=== PATIENT | female | born 1985 | race Caucasian/White ===

== ENCOUNTER → 2021-06-21 11:58 | Outpatient (CLI) | payer OTHER, SELFPAY ==
--- NOTE | 2021-06-21 | DI.MRI.S_ITS ---
PROCEDURE: MR HIP LT WO CON INDICATIONS: Pain in left hip TECHNIQUE: Noncontrast coronal T1 spin echo and STIR through the bony pelvis. Coronal and axial T2 fast spin echo with fat saturation, sagittal T1 spin echo, and oblique axial T2 fast spin echo with fat saturation through the hip. COMPARISON: None. FINDINGS: Image quality: Excellent. Bones and joints: Bone marrow of the pelvic ring and proximal femurs show normal signal throughout. No intraosseous lesions or fractures. No avascular necrosis of the femoral heads. The visualized lower lumbar spine appears normally aligned. Tendons and ligaments: The gluteus medius and minimus tendons appear intact, without associated muscle atrophy. The nearby proximal iliotibial band also appears intact. The iliopsoas tendon appears intact, without adjacent bursal fluid collections or evidence for impingement syndrome. The origin of the hamstring tendon is intact at the ischial tuberosity. The ligamentum teres appears intact where visualized. Labrum and cartilage: The acetabular labrum appears intact in the absence of intra-articular contrast. Cartilage surface of the femoral head appears of normal thickness. The alpha angle of the femur is within normal limits at less than 55 degrees. Soft tissues: Visualized muscles demonstrate normal bulk and internal signal. Quadratus femoris muscle demonstrates no internal edema to suggest ischiofemoral impingement. The proximal sciatic neurovascular bundle appears normal adjacent to the hamstring tendons. No free pelvic fluid. Bladder wall thickness is normal. 2.1 cm T2 hyperintense lesion in the left adnexa. The bowel loops appear normal where visualized. IMPRESSION: 1. No significant abnormality. 2. 2.1 cm cystic appearing lesion in the left adnexa, likely reflect an ovarian cyst. Dictated by: Keagan Gomez M.D. on 06/21/2021 at 13:39 Approved by: Keagan Gomez M.D. on 06/21/2021 at 13:45
== END ==
DX: M25.552 Pain in left hip (principal); N94.9 Unspecified condition associated with female genital organs and menstrual cycle
CPT/HCPCS: 73721